=== PATIENT | female | born 1950 | race Caucasian/White ===

== ENCOUNTER 2017-06-07 09:28 | Day surgery (SDC) | payer MEDICARE, MEDICAID ==
[~2017-06-07] VITALS: Ht 154.9 cm; Wt 91.6 kg
[~2017-06-07 09:28] MED LIST: ADVIL MIGRAI200 M1 PO; ALBUTEROL S2.5 MG/.5 IN; AMITRIPTYLIN10 MG PO; AMLODIPINE10 MG PO; AMLODIPINE5 MG PO; ASPIRIN EC81 MG PO; ASPIRIN81 M1 OR; AZITHROMYCIN250 MG PO; BACLOFEN10 MG OR; BREO ELLIPTA 101 INH IN; BUPRENORPHIN8 MG SL; CIPRO XR500 MG PO; CIPRO500 MG OR; CIPROFLOXACN500 MG PO; CLONAZEPAM1 MG PO; CLOPIDOGREL75 MG; DIAZEPAM10 MG OR; ECOTRIN325 MG OR; FLEXERIL10 MG OR; FUROSEMIDE20 MG PO; GABAPENTIN300 MG PO; GLUCOSAMINE H1500 MG PO; HYDROCHLOR12.5 MG/CA PO; HYDROCHLOROTH12.5 M1 PO; HYZAAR1 TAB PO; IBUPROFEN200 M1 OR; IBUPROFEN200 MG OR; LASIX 40 MG TAB40 MG PO; LEVOFLOXACIN750 MG PO; LEXAPRO5 MG OR; LIPITOR10 MG PO; LIPITOR80 MG OR; LISINOPRIL20 M1 OR; LISINOPRIL20 MG OR; LOPRESSOR50 M1 PO; LOPRESSOR50 MG PO; LORTAB 5 OR; LORTAB 5/3255 MG PO; LORTAB 7.57.5 MG PO; LOSARTAN POT100 MG PO; LOSARTAN POT50 MG PO; LYRICA50 MG OR; LYRICA50 MG PO; LYRICA75 MG OR; Levaquin PO; METHOCARBAM750 MG OR; METHOTREXATE2.5 MG PO; METOPROLOL25 MG OR; MICARDIS80 MG OR; MOTRIN400 MG OR; NEOPROFEN10 MG/ML IV; NITROSTAT0.4 MG SL; NORVASC5 MG OR; OMEPRAZOLE40 MG OR; ORPHENADRINE100 MG PO; PERCOCET 5/325M1 TAB OR; PERCOCET1 TA1 OR; PERCOCET1 TA4 PO; PERCOCET1 TAB OR; PHOSLO667 M1 PO; PLAVIX75 MG PO; POT CHLORIDE20 ME3 PO; PREDNISODT10 OR; PREDNISONE20 MG PO; PREDNISONE5 MG OR; PREDNISONE5 MG PO; PREVACID30 M2 OR; PROAIR HFA IN; PROVENTIL IN; ROBAXIN-750750 MG PO; SEROQUEL25 MG PO; SINGULAIR10 MG OR; THEOPHYLLINE200 M1 OR; TIZANIDINE2 MG PO; TIZANIDINE4 MG OR; TIZANIDINE4 MG PO; TOPROL XL25 MG OR; TRAMADOL HCL50 MG PO; VALIUM5 MG OR; VICODIN OR; VITAMIN D32000 UNIT PO
[2017-06-07 14:48] VITALS: BP 125/65
== END 2017-06-07 14:00 | disposition home or self-care (01) ==
LOC: ENDO 09:28
PROVIDERS: ATTEND Internal Medicine Gastroenterology
PROC: 0DBN8ZX Excision of Sigmoid Colon, Via Natural or Artificial Opening Endoscopic, Diagnostic (ICD-10-PCS; principal; 2017-06-07)
DX: Z12.11 Encounter for screening for malignant neoplasm of colon (principal); D12.5 Benign neoplasm of sigmoid colon; K64.4 Residual hemorrhoidal skin tags; K64.8 Other hemorrhoids; K57.30 Diverticulosis of large intestine without perforation or abscess without bleeding; I10 Essential (primary) hypertension

== ENCOUNTER 2017-07-18 13:54 | Emergency (ER) | payer MEDICARE ==
[~2017-07-18] VITALS: Ht 154.9 cm; Wt 75.0 kg
[2017-07-18 14:44] LABS: HEMATOCRIT 37.8 % (37.0-47.0); HEMOGLOBIN 12.1 g/dl (12.0-16.0); IMMATURE GRANULOCYTES 0.5 % (0.0-1.0); MEAN CELL VOLUME 86.3 fL CALC (80.0-100.0); MEAN CORPUSCULAR HGB 27.6 pG CALC (26.0-32.0); NEUT# 4.94 thou/uL (2.00-7.15); RED BLOOD COUNT 4.38 mill/uL (4.20-5.60); RED CELL DISTRI WIDTH 15.9 % (11.5-15.5)
[2017-07-18 14:58] LABS: ALBUMIN 4.4 g/dL (3.2-5.0); ALKALINE PHOSPHATASE 79 u/l (38-126); ANION GAP 20 (6-22 (CALC)); BILIRUBIN, TOTAL 0.7 mg/dL (0.0-1.4); BUN 24 mg/dL (8-23); BUN/CREATININE RATIO 15 (12-20 (CALC)); CALCIUM 9.8 mg/dL (8.4-10.2); CARBON DIOXIDE 21 mmol/l (22-30); CHLORIDE 106 mmol/l (95-108); CREATININE 1.6 mg/dL (0.5-1.0); ETHYL ALCOHOL 0 mg/dl (0-30); GFR 32 ML/MIN (>=60 (CALC)); GFR FOR AFR.AMER. 39 ML/MIN (>=60 (CALC)); GLUCOSE 123 mg/dL (82-115); POTASSIUM 3.7 mmol/l (3.5-5.1); SGOT/AST 30 u/l (9-36); SGPT/ALT 29 u/l (11-66); SODIUM 143 mmol/l (137-146); TOTAL PROTEIN 8.4 g/dL (6.3-8.2)
[2017-07-18 15:09] LABS: MYOGLOBIN 51 ng/mL (0 - 62)
[2017-07-18 16:17] LABS: BARBITURATES NEGATIVE (NEGATIVE); COCAINE NEGATIVE (NEGATIVE); METHADONE NEGATIVE (NEGATIVE); OXCYCODONE NEGATIVE (NEGATIVE); TETRAHYDROCANNABIONOL NEGATIVE (NEGATIVE); TRICYLIC ANTIDEPRESSANTS NEGATIVE (NEGATIVE)
[2017-07-18 17:36] VITALS: BP 143/68
== END 2017-07-18 17:25 | disposition home or self-care (01) ==
LOC: ED 13:54
PROVIDERS: Emergency Medicine
DX: N28.9 Disorder of kidney and ureter, unspecified (principal); R55 Syncope and collapse; R53.1 Weakness; R42 Dizziness and giddiness; I10 Essential (primary) hypertension; Y92.009 Unspecified place in unspecified non-institutional (private) residence as the place of occurrence of the external cause